=== PATIENT | male | born 1985 | race African-American/Black ===

== ENCOUNTER 2019-02-26 17:38 | Emergency (ER) | payer OTHER ==
[~2019-02-26] VITALS: Ht 185.4 cm; Wt 99.8 kg
[2019-02-26 17:42] VITALS: BP 144/84
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
== END 2019-02-26 18:23 | disposition home or self-care (01) ==
LOC: ER 17:38
DX: M54.5 Low back pain (principal); M54.6 Pain in thoracic spine; G89.11 Acute pain due to trauma; V46.4XXA Person boarding or alighting a car injured in collision with other nonmotor vehicle, initial encounter; Y92.488 Other paved roadways as the place of occurrence of the external cause; Y93.89 Activity, other specified; Y99.8 Other external cause status
CPT/HCPCS: 99281